=== PATIENT | female | born 1950 | race Caucasian/White ===

== ENCOUNTER 2018-01-01 10:35 | Day surgery (SDC) | payer OTHER ==
[2018-01-01] VITALS (8 sets, daily range): BP systolic 146–200; BP diastolic 73–79; PULSE 33–78; RESP 16–18; TEMP 98.5; O2SAT 95–100
[~2018-01-01] VITALS: Ht 167.6 cm; Wt 57.9 kg
[2018-01-01] MEDS ORDERED: IOHEXOL 350 MG/ML 50 ML BTL (for Cath Lab) OTHER ONE (10:36)
[2018-01-01] MEDS ORDERED: LOSA50TA PO (11:37)
[2018-01-01] MEDS ORDERED: CHOL10008 PO (11:37)
[2018-01-01] MEDS ORDERED: VITA250T3 PO (11:37)
[2018-01-01] MEDS ORDERED: CHLORHEXIDINE GLUCONATE 2 % 1 PACK (2 CLOTHS) TOPICAL SCH (11:45)
[2018-01-01] MEDS ORDERED: VANCOMYCIN 1000 MG/NS 250 ML IV SCH ×2 (11:45)
[2018-01-01] MEDS ORDERED: CHLORHEXIDINE GLUCONATE 2 % 1 PACK (2 CLOTHS) TOPICAL PRN (11:45)
[2018-01-01] MEDS ORDERED: METOPROLOL TARTRATE 25 MG TAB PO PRN (11:45)
[2018-01-01] MEDS ORDERED: POVIDONE IODINE 5% (ANTISEPSIS KIT) 4 APPLICATIONS EACH NARE SCH (11:45)
[2018-01-01] MEDS ORDERED: ceFAZolin 2 GM PREMIX 50 ML IV SCH (11:45)
[2018-01-01] MEDS ORDERED: LACTATED RINGER'S 1000 ML IV PRN (11:45)
[2018-01-01] MEDS ORDERED: SODIUM CHLORID 0.9% 500 ML IV PRN (11:45)
[2018-01-01] MEDS ORDERED: MUPIROCIN 2% OINT 1 APPLIC/GM SYR NASAL SCH (11:45)
[2018-01-01] MEDS ORDERED: POVIDONE IODINE 5% (ANTISEPSIS KIT) 4 APPLICATIONS EACH NARE PRN (11:45)
[2018-01-01 11:51] LABS: BASOPHIL # 0.1 TH/MM3 (0-0.2); BASOPHIL % 0.7 % (0.0-2.0); EOSINOPHIL # 0.1 TH/MM3 (0-0.4); EOSINOPHIL % 1.7 % (0.0-4.0); HEMATOCRIT 39.5 % (35.0-46.0); HEMOGLOBIN 13.6 GM/DL (11.6-15.3); LYMPH % 27.1 % (9.0-44.0); LYMPHOCYTE # 2.1 TH/MM3 (1.0-4.8); MEAN CORPUSCULAR HEMOGLOBIN 26.5 PG (27.0-34.0); MEAN CORPUSCULAR HGB CONC 34.4 % (32.0-36.0); MEAN PLATELET VOLUME 8.8 FL (7.0-11.0); MONO % 6.7 % (0.0-8.0); MONOCYTE # 0.5 TH/MM3 (0-0.9); NEUT % 63.8 % (16.0-70.0); PLATELET COUNT 295 TH/MM3 (150-450); RED BLOOD COUNT 5.13 MIL/MM3 (4.00-5.30); RED CELL DISTRIBUTION WIDTH 15.6 % (11.6-17.2); WHITE BLOOD COUNT 7.8 TH/MM3 (4.0-11.0)
[2018-01-01 11:59] LABS: PROTHROMBIN TIME - PATIENT 10.4 SEC (9.8-11.6)
[2018-01-01] MEDS ORDERED: ONDANSETRON HCL 4 MG/2 ML VIAL IV ONE (12:00)
[2018-01-01] MEDS ORDERED: PROPOFOL 200 MG/20 ML AMP IV ONE (12:00)
[2018-01-01] MEDS ORDERED: DEXAMETHASONE SOD PHOS 4 MG/ML VIAL IV ONE (12:00)
[2018-01-01] MEDS ORDERED: NS 1000 ML IV SCH (12:00)
[2018-01-01] MEDS ORDERED: ePHEDrine/NS 25 MG/5 ML SYRINGE IV ONE (12:00)
[2018-01-01 12:09] LABS: BICARBONATE 26.8 MEQ/L (21.0-32.0); CREATININE 0.75 MG/DL (0.50-1.00)
[2018-01-01] MEDS ORDERED: LIDOCAINE HCL 2% 50 ML VIAL ONE (13:04)
[2018-01-01] MEDS ORDERED: traMADol HCL 50 MG TAB PO PRN (13:45)
[2018-01-01] MEDS ORDERED: ZOLPIDEM TARTRATE 5 MG TAB PO PRN (13:45)
[2018-01-01] MEDS ORDERED: MIDAZOLAM HCL 2 MG/2 ML VIAL ONE (14:27)
--- NOTE | 2018-01-01 14:48 | CATHPROC ---
[place] [facility] Report Study Information Study Number Admission Scheduled Start Study Start [id number] Jan 01 2018 10:35AM 01/01/2018 Jan 01 2018 12:55PM [place] [facility] Cardiac Pacer/ICD Admit Source Facility Department Other [facility] - Shot Examiner Physician and Clinical Staff Initial Reji Junior Training Program Assistant Kajal Valdez RN Other Anesthesia, CUSTOM FRAMING SPECIALIST Recorder Johana Lozano BSN Scrub Mg Franz RT(R) Procedures Performed Procedure Location (Site) Vessel Name Lead Insertion Venogram Subclav. Vein (Rt) Subclavian Vein Equipment Time Technical Producer Description Size Mfg Part Number Used/Scraped 14:15 BIOTRONIK LEAD, SOLIA 60 53 PRO MRI * [id number] Used 14:18 BIOTRONIK LEAD, SOLIA S PRO MRI * [id number] Used 14:22 BIOTRONIK PACEMAKER, ELUNA 8 DR-T DDDR [id number] Used TP-1103 12:58 MEDLINE INDUSTRIES SUTURE, STRIP PLUS 1/2" * Used *[id number] 12:58 MEDLINE PACER ADHESIVE, MASTISOL 2/3CC 2/3CC 0523-48 Used 12:58 MEDLINE PACER VYAS, LIMB * 2530 *[id number] Used [id number] 12:58 MEDLINE PACER PACK, PACER CUSTOM * Used *[id number] 12:58 MEDLINE PACER PEN, SKIN DUAL W/ RULER * Used *[id number] 14:10 [employer] MEDICAL PACER SAFE SHEATH, FR7, 13CM FR 7 CLS-1007 Used 14:10 [employer] MEDICAL PACER SAFE SHEATH, FR7, 13CM FR 7 CLS-1007 Used 14:01 Needle Sponge Count 15 15 Used 14:01 Needle Sponge Count 2 22 Used 14:01 Needle Sponge Count 4 4 Used 14:09 [employer]ED OMNIPAQUE, 350 MG, 50ML 50ML [id number] Used [id number] *[id number] SUTURE, 3-0 VICRYL [SH] ([id number]) SUTURE, 3-0 VICRYL [SH] ([id number]) SUTURE, 4-0 MONOCRYL [PS2] (Y496G) [id number] 12:58 [place] [employer] BL[employer]ET,WARM AIR CCL * Used *[id number] [facility] PAD, ELECTROSURGICAL 12:58 * [id number] *[id number] Used SURGICAL GROUNDING ORANGE [id number] 12:58 [employer]. / * Used *70049 Equipment Model, Serial, Lot Number and Expiration Data Description Model Number Serial Number Lot Number Expiration Date LEAD, DEVENDRA Cunningham 53 PRO MRI [id number] 10-09-2019 LEAD, DEVENDRA Sánchez PRO MRI [id number] 06-09-2019 PACEMAKER, ELUNA 8 TORIE [id number] 02-07-2019 History: Allergies Allergy Reaction No Known Allergies History: Risk Factors Family History of Hypertension Dyslipidemia Previous NC Previous Heart Failure Premature CAD Yes No No No No Prior Valve Prior PCI Prior CABG Surgery No No No Cerebrovascular Peripheral Artery Chronic Lung On Dialysis Diabetes Disease Disease Disease No No No No No Labs Hgb (g/dl) Hct (%) RBC (MIL/MM3) WBC (l/cumm) Platelets (thousands) 11.60-17.00 35.00-51.00 4.00-5.90 4.00-11.00 150.00-450.00 13.0 39 5.1 7.8 295 Glucose (mg/dl) BUN (mg/dl) Creatinine (mg/dl) BUN:Creatinine (1:x) 74.00-106.00 7.00-18.00 0.50-1.30 10.00-20.00 81 10 0.7 14.3 Na (meq/l) K (meq/l) 136.00-145.00 3.50-5.10 140 3.9 INR (PTT:PT) 0.90-1.10 1 CPK-MB (ng/ML) 0.50-3.60 Not Drawn Medication Medication Total Dose (Bolus/Oral) Medication Total Dosage/Unit 2% XYLOCAINE 20 mL Medications (Bolus/Oral) Medication Time Given Dosage/Unit Administered By Reason 2% XYLOCAINE 01/01/2018 2:09:15 PM 20 mL Reji Call 20 mL 2% XYLOCAINE given in lab by Anesthesia, CUSTOM FRAMING SPECIALIST in Right CHEST via Subcutaneous. Ordered by Reji Call. Medication (Drip) Medication Time Given Dosage/Unit Concentration/Unit Diluent (ml) Solution ANCEF 01/01/2018 1:43:53 PM 2 g 2 g ANCEF given in lab by Anesthesia, CUSTOM FRAMING SPECIALIST in Left Forearm via Peripheral IV. Ordered by Reji Call . IV Solutions 01/01/2018 1:49:23 PM 50 mL (IV) NaCl .9 IV Solutions given via Peripheral IV. KVO Flow using NaCl .9. IV Solutions 01/01/2018 1:50:10 PM 50 mL (IV) NaCl .9 IV Solutions given in lab by Anesthesia, CUSTOM FRAMING SPECIALIST in Left Forearm via Peripheral IV. KVO Flow using NaCl .9. Ordered by Reji Call. VANCOMYCIN DRIP 01/01/2018 1:43:40 PM 1 g 1 g VANCOMYCIN DRIP given in lab by Anesthesia, CUSTOM FRAMING SPECIALIST in Left Forearm via Peripheral IV. Ordered by Reji Monique. Initial Case Assessment Cardiovascular HR Rhythm NIBP Chest Pain 32 SB 200/73 0 Edema Present Skin color Skin None Normal Warm Dry Circulatory - Lower Extremities Color Lower Right Color Lower Left Normal Normal Neurological State Oriented to time-place- Alert Moves all extremities person Respiration - General Respiration Rate SpO2 (%) (B/min) 24 99 Final Case Assessment Cardiovascular HR Rhythm NIBP Chest Pain 80 PACED 140/68 0 Edema Present Skin color Skin None Normal Warm Dry Neurological State Oriented to time-place- Alert Moves all extremities person Respiration - General Respiration Rate SpO2 (%) O2 (lpm) (B/min) 13 96 2 Chronological Log Time Study Chronological Log 13:35:26 Patient arrived via Bed. 13:35:30 Patient Name, D.O.B, / Armband Verified By R.N. 13:35:44 Anesthesia at bedside. Assumes care of patient. 13:36:38 Consent signed by the physician and the patient and verified by the Shot Examiner staff. 13:37:51 Presedation assessment performed by Shot Examiner RN. 13:38:12 Patient has been NPO for More than 6Hrs. 13:38:32 Patient Warmer Placed on the Table. 13:41:38 Disposable Defibrillator Pads Placed On Patient. 13:41:45 Vignesh Prominences Protected 13:42:25 History and physical on the chart or being dictated. 13:43:40 1 g VANCOMYCIN DRIP given in lab by Anesthesia, CUSTOM FRAMING SPECIALIST in Left Forearm via Peripheral IV. Ord ered by Reji Call. 13:43:53 2 g ANCEF given in lab by Anesthesia, CUSTOM FRAMING SPECIALIST in Left Forearm via Peripheral IV. Ordered by Reji Monique. 13:47:23 Bovie ground pad applied to: LEFT THIGH 13:48:10 Immediate Presedation assesment performed by physician. 13:48:18 Skin Breakdown- none per patient 13:48:51 A # 20 IV was noted in the Forearm (right). Grade = 0 13:49:13 A # 20 IV was noted in the Forearm (left). Grade = 0 13:49:23 IV Solutions given via Peripheral IV. KVO Flow using NaCl .9. IV Solutions given in lab by Anesthesia, CUSTOM FRAMING SPECIALIST in Left Forearm via Peripheral IV. KVO Flow using NaCl .9. Ordered by 13:50:10 Reji Call. 13:50:36 Right Upper Chest Prepped Times Two. Assessment: Initial Case, HR=32 BPM, Rhythm=SB, TYCG=002/73 mmhg, Chest Pain=0, Edema=None, Col or=Normal, Skin = Warm, Dry Lower Right Extremities: Color=Normal 13:50:39 Lower Left Extremities: Color=Normal Neurological: State=Alert, Ox3, SCHWAB Respiration: Resp=24 B/min, SpO2=99 % 13:51:40 Table restraints applied according to hospital policy 13:52:55 Right Upper Chest Prepped Times Two. 13:59:10 Reference ECG taken 14:00:50 2% CHLORHEXIDINE GLUCONATE WASH AND NASAL SWIPE DONE PRIOR TO PROCEDURE. First Sponge And Instrument Count Done by Mg Franz, RT(R). 14:00:55 Hypo's: 4, Sponges: 15, Bovie/scratch: 2 Sutures: 6, Blades: 1, Instruments: 26, Syveck Patches: 0 14:01:49 MD paged 14:03:59 MD arrived. Time Out. Correct patient, procedure, procedure equipment, site and side verified with physicia n present. Time 14:07:13 concurred by MD, individual staff and CUSTOM FRAMING SPECIALIST. Time Out #2 - Consents verified, patient in correct position, all results are labled and displa yed, safety precautions 14:07:14 taken, antibiotics administered. Time out concurred by , individual staff and CUSTOM FRAMING SPECIALIST in procedu re 14:07:37 Case Start 14:08:51 The Subclav. Vein (Rt) was manually injected with 10 cc's of contrast. OMNIPAQUE, 350 MG, 5 0ML 50ML used. 14:09:15 20 mL 2% XYLOCAINE given in lab by Anesthesia, CUSTOM FRAMING SPECIALIST in Right CHEST via Subcutaneous. Ordere d by Reji Call. 14:11:06 Surgical Incision Made. 14:11:46 A pocket was created at the R Upper Chest. 14:12:41 Vascular access was obtained in the Subclav. Vein (Rt). 14:13:08 Vascular access was obtained in the Subclav. Vein (Rt). 14:13:19 A SAFE SHEATH, FR7, 13CM FR 7 was advanced into the Subclav. Vein (Rt) using the Percutaneo us technique. 14:13:33 A SAFE SHEATH, FR7, 13CM FR 7 was advanced into the Subclav. Vein (Rt) using the Percutaneo us technique. 14:14:25 Two DRY sponges put into the surgical pocket. 14:15:12 A LEAD, SOLIA 60 53 PRO MRI * was inserted and positioned in the RV. 14:15:32 Lead placement verified under fluoroscopy 14:16:59 The RV lead impedance and threshold being tested. 14:20:02 The RV lead was sutured to the fascia. 14:20:12 A LEAD, SOLIA 60 53 PRO MRI * was inserted and positioned in the RA. 14:22:18 Lead placement verified under fluoroscopy 14:22:30 The Atrial lead impedance and threshold is being tested. 14:23:47 The Atrial lead was sutured to the fascia. 14:27:42 Sponges removed from the surgical pocket. 14:28:10 A PACEMAKER, ELUNA 8 DR-T DDDR was connected and placed in the pocket. SECOND Sponge And Instrument Count Done by Mg Franz RT(R). 14:30:43 Hypo's: 4, Sponges: 15, Bovie/scratch: 2 Sutures: 6, Blades: 1, Instruments: 26, Syveck Patches: 0 14:31:44 The pocket is being closed. 14:41:09 The pocket was closed. 14:41:24 Case End 14:41:34 Steri-strips and a sterile dressing applied to site. 14:41:47 Implant Procedure was performed. 14:41:50 A PPM Implant . (Dual) FINAL Sponge And Instrument Count Done by Mg Franz RT(R). 14:42:00 Hypo's: 4, Sponges: 15, Bovie/scratch: 2 Sutures: 6, Blades: 1, Instruments: 26, Syveck Patches: 0 14:42:59 No case complications noted. 14:43:01 Cine recording checked. 14:43:34 Bedside Report will be given. 14:43:37 Implantable Device card placed in patient's chart. Assessment: Final Case, HR=80 BPM, Rhythm=PACED, KHDE=991/68 mmhg, Chest Pain=0, Edema=None, Color=Normal, Skin = Warm, Dry 14:44:20 Neurological: State=Alert, Ox3, SCHWAB Respiration: Resp=13 B/min, SpO2=96 %, O2=2 lpm 14:49:27 A sling was placed on the affected arm. 14:53:42 Defibrillator and ground pads removed. Skin intact. 14:57:48 Patient moved to stretcher End Study - Contrast Media Used In Study Contrast Total Opened (mL) Total Used (mL) Total Wasted (mL) Omnipaque 10 10 0 End Study - Maximum Contrast Load Max Contrast Load (mL) 413.6 End Study - Radiation Exposure Fluoro Time (minutes) 2.5 End Study - Patient Disposition Complications Transferred To No Shot Examiner Holding
--- NOTE | 2018-01-01 15:43 | RADRPT ---
EXAM DATE/TIME: 01/01/2018 15:28 [place] COMPARISON: No previous studies available for comparison. INDICATIONS : Post pacemaker placement. MEDICAL HISTORY : Hypertension. SURGICAL HISTORY : None. ENCOUNTER: Initial ACUITY: 1 day PAIN SCORE: 0/10 LOCATION: Bilateral chest FINDINGS: A single view of the chest demonstrates the lungs to be symmetrically aerated without evidence of mas s, infiltrate or effusion. The cardiomediastinal contours are unremarkable. Osseous structures are intact. A right-sided dual-lead pacing device observed. Leads terminate in the region of the right at rium and right ventricle respectively. No pneumothorax. CONCLUSION: No pneumothorax. Mak Denton Jr., MD on January 01, 2018 at 15:39 Board Certified Radiologist. This report was verified electronically.
[2018-01-01] MEDS: LOSARTAN 50 MG TAB PO SCH (20:09)
[2018-01-02] VITALS (12 sets, daily range): BP systolic 144–158; BP diastolic 70–78; PULSE 60–68; RESP 16–18; TEMP 97; O2SAT 95–98
[2018-01-02] MEDS ORDERED: VANCOMYCIN INJ 1,000 MG in SODIUM CHLOR 0.9% 250 ML INJ 250 ML IV ONE (02:30)
--- NOTE | 2018-01-02 09:12 | PD.CARD.PN ---
Subjective Subjective Remarks No incisional pain, dyspnea. Objective Medications Item Value Date Time Losartan Potassium 50 mg 01/01/182099 (Cozaar) BID/PO 01/01/182008 Current Medications Medications (Trade) Dose Ordered Sig/[place]onzales Route Start Time Stop Time Status Last Admin Sodium Chloride 1,000 ml @ 30 mls/hr Q24H IV 01/01/18 12:00 Cefazolin Sodium/ Dextrose 50 ml @ 100 mls/hr PAYROLL TECHNICIAN IV 01/01/18 11:45 01/04/18 11:44 01/01/18 13:43 Vancomycin HCl 1000 mg/Sodium Chloride 250 ml @ 250 mls/hr PAYROLL TECHNICIAN IV 01/01/18 11:45 01/04/18 11:44 01/01/18 13:43 (Betadine 5% Antisepsis Kit) 2 applic PAYROLL TECHNICIAN EACH NARE 01/01/18 11:45 01/04/18 11:44 (Bactroban Nasal 2% Oint) 1 applic PAYROLL TECHNICIAN NASAL 01/01/18 11:45 01/04/18 11:44 (Chlorhexidine 2% Cloth) 3 pack PAYROLL TECHNICIAN TOPICAL 01/01/18 11:45 01/04/18 11:44 Lactated Ringer's 1,000 ml @ 30 mls/hr Q24H PRN IV 01/01/18 11:45 01/04/18 11:44 Sodium Chloride 500 ml @ 30 mls/hr [id number] PRN IV 01/01/18 11:45 01/04/18 11:44 (Lopressor) 25 mg PAYROLL TECHNICIAN PRN PO 01/01/18 11:45 01/04/18 11:44 (Betadine 5% Antisepsis Kit) 1 applic PAYROLL TECHNICIAN PRN EACH NARE 01/01/18 11:45 01/04/18 11:44 (Chlorhexidine 2% Cloth) 3 pack PAYROLL TECHNICIAN PRN TOPICAL 01/01/18 11:45 01/04/18 11:44 (Cozaar) 50 mg BID PO 01/01/18 21:00 01/01/18 20:09 (Ambien) 5 mg HS PRN PO 01/01/18 13:45 (Ultram) 50 mg Q6HR PRN PO 01/01/18 13:45 01/01/18 20:09 Vital Signs / I&O Vital Signs Date Time Temp Pulse Resp B/P (MAP) Pulse Ox O2 Delivery O2 Flow Rate FiO2 01/02/18 07:50 60 01/02/18 06:19 60 01/02/18 05:05 61 01/02/18 04:41 60 01/02/18 04:39 62 16 158/78 (104) 95 01/02/18 04:00 62 01/02/18 03:00 66 01/02/18 02:00 64 01/02/18 01:00 62 01/02/18 00:34 65 01/02/18 00:34 68 16 149/70 (96) 95 01/02/18 00:00 62 01/01/18 23:00 78 01/01/18 22:00 66 01/01/18 21:57 16 01/01/18 21:00 68 01/01/18 20:30 72 01/01/18 20:00 72 16 146/79 (101) 95 01/01/18 20:00 74 01/01/18 19:00 76 01/01/18 17:30 01/01/18 17:30 75 01/01/18 11:00 98.5 33 18 200/73 (115) 100 I/O 01/01/18 01/01/18 01/01/18 01/02/18 01/02/18 01/02/18 07:00 15:00 23:00 07:00 15:00 23:00 Intake Total 1030 ml 0 ml Balance 1030 ml 0 ml Intake Oral 480 ml IV Total 550 ml 0 ml # Voids 3 Physical Exam Pacer incision clean, dry, intact, no hematoma or tenderness. Laboratory Laboratory Tests Test 01/01/18 11:15 White Blood Count 7.8 TH/MM3 Red Blood Count 5.13 MIL/MM3 Hemoglobin 13.6 GM/DL Hematocrit 39.5 % Mean Corpuscular Volume 77.0 FL Mean Corpuscular Hemoglobin 26.5 PG Mean Corpuscular Hemoglobin Concent 34.4 % Red Cell Distribution Width 15.6 % Platelet Count 295 TH/MM3 Mean Platelet Volume 8.8 FL Neutrophils (%) (Auto) 63.8 % Lymphocytes (%) (Auto) 27.1 % Monocytes (%) (Auto) 6.7 % Eosinophils (%) (Auto) 1.7 % Basophils (%) (Auto) 0.7 % Neutrophils # (Auto) 5.0 TH/MM3 Lymphocytes # (Auto) 2.1 TH/MM3 Monocytes # (Auto) 0.5 TH/MM3 Eosinophils # (Auto) 0.1 TH/MM3 Basophils # (Auto) 0.1 TH/MM3 CBC Comment DIFF FINAL Differential Comment Prothrombin Time 10.4 SEC Prothromb Time International Ratio 1.0 RATIO Activated Partial Thromboplast Time 27.4 SEC Blood Urea Nitrogen 10 MG/DL Creatinine 0.75 MG/DL Random Glucose 81 MG/DL Calcium Level 9.0 MG/DL Sodium Level 140 MEQ/L Potassium Level 3.9 MEQ/L Chloride Level 106 MEQ/L Carbon Dioxide Level 26.8 MEQ/L Anion Gap 7 MEQ/L Estimat Glomerular Filtration Rate 77 ML/MIN Imaging Last 48 hours Impressions Chest X-Ray 01/01/18 0000 Signed Impressions: Service Date/Time: December 15:28 - CONCLUSION: No pneumothorax. Mak Denton Jr., MD Assessment and Plan Problem List: (1) Status post placement of cardiac pacemaker ICD Codes: Z95.0 - Presence of cardiac pacemaker Status: Acute Plan: Stable overnight. Pacer function OK on re-interrogation. Pacer site OK. To discharge home, same home medications plus Levaquin 500 mg qd for 5 days , f/u next week for pacer and incision recheck. Instructions verbally given regarding wound care and dressing change. Code Status full code Discussed Condition With patient Reji Call MD Jan 02, 2018 09:12
[2018-01-02] MEDS: LOSARTAN 50 MG TAB PO SCH (09:22)
--- NOTE | 2018-01-02 14:00 | EKG ---
Date Performed: 01/01/2018 Time Performed: 11:33:38 PTAGE: 67 years EKG: Normal Sinus rhythm with a complete heart block and an idioventricular escape rhythm Abnormal ECG NO PREVIOUS TRACING Clinical correlation will be extremely important to address the compl ete heart block and possible unreliable ventricular escape rhythm. DOCTOR: Salina Romero Interpretating Date/Time 01/02/2018 13:59:38
--- NOTE | 2018-01-03 22:06 | MP ---
cc: CARLOTTA CAMARGO DATE OF SURGERY 01/01/18 PROCEDURE Dual-chamber permanent pacemaker implantation via the right subclavian vein. INDICATIONS Complete heart block, severe bradycardia. OPERATIVE NOTE The patient was brought to the operating suite in a fasting state after having signed informed consent. The right upper chest was prepped and draped as per policy and anesthetized with 1% lidocaine. A transverse incision was made inferior to the right clavicle and, using blunt dissection, a subcutaneous pocket was formed down to the pectoralis fascia. Using modified Seldinger technique, central venous access was obtained twice via the right subclavian vein. Over the more lateral guidewire, a 7-[place] sheath was placed and, through this sheath, a ventricular active fixation lead was introduced and its tip positioned in the right ventricular apex where good current of injury, stimulation threshold (1.1 volts) and sensitivity (6.5 mV) were demonstrated. This lead was secured into place using 2-0 silk ties down to the pectoralis fascia. Over the remaining guidewire, another 7-[place] sheath was placed and, through this sheath, an atrial active fixation lead was introduced and its tip positioned in the right atrial appendage where good current of injury, stimulation threshold (0.6 volts) and sensitivity (2.1 mV) were demonstrated. This lead was secured into place using 2-0 silk ties down to the pectoralis fascia. The leads were then connected to the pacemaker generator which is a Biotronik Eluna device. The leads and the generator were placed back into the subcutaneous pocket which was closed using 3-0 Vicryl interrupted stitches in two layers to close the subcutaneous tissue and then 4-0 Monocryl running stitch to close the subcuticular tissue. Overlapping Steri-Strips and a dressing were applied. There were no apparent immediate complications. A portable chest x-ray is pending at the time of this dictation. CONCLUSION Successful dual-chamber permanent pacemaker implantation via the right subclavian vein using a Biotronik Eluna pacemaker generator. MD BALTA Byrd/ /2:42 PM /9:59 PM [facility]
== END 2018-01-02 10:48 | disposition home or self-care (01) ==
LOC: HDOC 10:35 → HDIC 10:36 → HCIS 17:26 → HDOC 01-02 10:48
PROVIDERS: ATTEND Internal Medicine Cardiovascular Disease
DX: I44.2 Atrioventricular block, complete (principal); R00.1 Bradycardia, unspecified; I10 Essential (primary) hypertension; R00.2 Palpitations; K58.9 Irritable bowel syndrome, unspecified; Z01.818 Encounter for other preprocedural examination
CPT/HCPCS: 00530; 33208; 71045; 80048; 85025; 85610; 85730; 93005; C1785; C1898; J0690; J1100; J2250; J2405; J3010; J3370; J7050; Q9967